=== PATIENT | female | born 1950 | race African-American/Black ===

== ENCOUNTER 2020-08-14 12:57 | Inpatient (IN) | payer OTHER ==
[~2020-08-14] VITALS: Ht 175.3 cm; Wt 116.7 kg
[2020-08-14] MEDS ORDERED: Aspirin Baby 81mg ORAL ONE (13:00)
--- NOTE | 2020-08-14 13:09 | Emergency Room Report ---
History of Present Illness General Chief Complaint: Chest Pain Source: Patient, EMS Present Illness HPI 70-year-old female history of CAD, hypertension, CHF, pacemaker, presents with right-sided chest burning, patient states the pain started at 3 AM no aggravating relieving factors severity is moderate, constant she does endorse some accompanying shortness of breath, she took an aspirin and nitro without any relief no nausea no vomiting, no diaphoresis patient presents for evaluation and treatment Allergies: Coded Allergies: No Known Allergies (Unverified , 08/14/20) COVID-19 Screening Contact w/high risk pt: No Experienced COVID-19 symptoms?: No COVID-19 Testing performed STATE FIRE [employer]SHAL: No Patient History Past Medical History: see triage record Last Menstrual Period: na Reviewed Nursing Documentation: PMH: Agreed; PSxH: Agreed Nursing Documentation-PMH Past Medical History: No History, Except For Hx Cardiac Problems: Yes - CHF, lupus Hx Hypertension: Yes Hx Pacemaker: Yes Review of Systems All Other Systems: negative except mentioned in HPI Physical Exam Vital Signs Date Time Temp Pulse Resp B/P (MAP) Pulse Ox O2 Delivery O2 Flow Rate FiO2 08/14/20 12:53 97.7 84 16 160/95 (116) 94 Room Air Sp02 EP Interpretation: reviewed, normal General Appearance: well appearing, no apparent distress, alert Head: normocephalic, atraumatic Eyes: bilateral eye PERRL, bilateral eye EOMI ENT: uvula midline, moist mucus membranes Neck: supple, thyroid normal, supple/symm/no masses Respiratory: lungs clear, no respiratory distress, no retraction, no accessory muscle use Cardiovascular #1: normal peripheral pulses, regular rate, rhythm, no gallop, no murmur, edema - Bilateral 1+ pedal edema Gastrointestinal: non tender, soft, no guarding, no rebound Musculoskeletal: normal inspection Neurologic: alert, oriented x3 Psychiatric: mood/affect normal Skin: no rash, warm/dry, other - [employer] Jyothi Garcia RN, no evidence of vesicular rash Medical Decision Making Diagnostic Impression: Primary Impression: Chest pain Qualified Codes: R07.9 - Chest pain, unspecified ER Course 70-year-old female with multiple comorbidities presents with right-sided burning chest pain differential diagnosis includes ACS, pancreatitis, pneumonia Will obtain labs, EKG, chest x-ray patient will be given 162 mg of aspirin patient already received 81 mg of baby aspirin at home Plan for admission to Dr. Butcher Laboratory Tests Test 08/14/20 13:15 08/14/20 13:50 Sodium Level 142 MMOL/L (136-145) Potassium Level 4.5 MMOL/L (3.5-5.1) Chloride Level 106 MMOL/L (98-107) Carbon Dioxide Level 24 MMOL/L (21-32) Anion Gap 13 mmol/L (5-15) Blood Urea Nitrogen 29 mg/dL (7-18) H Creatinine 2.0 MG/DL (0.55-1.30) H Estimated Glomerular Filtration Rate 24.5 mL/min (>60) Glucose Level 128 MG/DL (74-106) H Calcium Level 9.8 MG/DL (8.5-10.1) Total Bilirubin 0.4 MG/DL (0.2-1.0) Aspartate Amino Transferase (AST) 29 U/L (15-37) Alanine Aminotransferase (ALT) 30 U/L (12-78) Alkaline Phosphatase 94 U/L (46-116) Troponin I 0.000 ng/mL (0.000-0.056) Pro-B-Type Natriuretic Peptide 402 pg/mL (0-125) H Total Protein 7.6 G/DL (6.4-8.2) Albumin 4.1 G/DL (3.4-5.0) Globulin 3.5 g/dL Albumin/Globulin Ratio 1.2 (1.0-2.7) White Blood Count 5.3 K/UL (4.8-10.8) Red Blood Count 3.53 M/UL (4.20-5.40) L Hemoglobin 10.4 G/DL (12.0-16.0) L Hematocrit 32.2 % (37.0-47.0) L Mean Corpuscular Volume 91 FL (80-99) Mean Corpuscular Hemoglobin 29.6 PG (27.0-31.0) Mean Corpuscular Hemoglobin Concent 32.4 G/DL (32.0-36.0) Red Cell Distribution Width 15.1 % (11.6-14.8) H Platelet Count 297 K/UL (150-450) Mean Platelet Volume 5.3 FL (6.5-10.1) L Neutrophils (%) (Auto) 55.8 % (45.0-75.0) Lymphocytes (%) (Auto) 30.0 % (20.0-45.0) Monocytes (%) (Auto) 9.1 % (1.0-10.0) Eosinophils (%) (Auto) 1.8 % (0.0-3.0) Basophils (%) (Auto) 3.3 % (0.0-2.0) H Prothrombin Time 11.4 SEC (9.30-11.50) Prothrombin Time INR 1.0 (0.9-1.1) Activated Partial Thromboplast Time 20 SEC (23-33) L EKG Diagnostic Results EKG Time: 12:56 EP Interpretation: V paced, rate 76, QTc 569, left bundle branch block no acute ST elevation Rhythm Strip Diag. Results Rhythm Strip Time: 13:09 EP Interpretation: yes Rate: 75 Rhythm: other - V paced Chest X-Ray Diagnostic Results Chest X-Ray Diagnostic Results : Chest X-Ray Ordered: Yes # of Views/Limited/Complete: 1 View Indication: Chest Pain EP Interpretation: Yes Interpretation: no consolidation, no effusion, no pneumothorax, no acute cardiopulmonary disease Impression: No acute disease Electronically Signed by: Shine Cedillo MD Last Vital Signs Date Time Temp Pulse Resp B/P (MAP) Pulse Ox O2 Delivery O2 Flow Rate FiO2 08/14/20 12:53 97.7 84 16 160/95 (116) 94 Room Air Disposition: ADMITTED INPATIENT Condition: Stable Shine Cedillo MD Aug 14, 2020 13:09
[2020-08-14 13:35] VITALS: BP 155/92
[2020-08-14 13:37] LABS: CALCIUM 9.8 MG/DL (8.5-10.1); POTASSIUM 4.5 MMOL/L (3.5-5.1)
[2020-08-14 13:49] LABS: ALBUMIN 4.1 G/DL (3.4-5.0); ALBUMIN/GLOBULIN RATIO 1.2 (1.0-2.7); BILIRUBIN,TOTAL 0.4 MG/DL (0.2-1.0)
[2020-08-14 13:57] LABS: BASOPHILS % (AUTO) 3.3 % (0.0-2.0); EOSINOPHILS % (AUTO) 1.8 % (0.0-3.0); HEMATOCRIT 32.2 % (37.0-47.0); HEMOGLOBIN 10.4 G/DL (12.0-16.0); MEAN CORPUSCULAR VOLUME 91 FL (80-99); MONOCYTES % (AUTO) 9.1 % (1.0-10.0); NEUTROPHILS % (AUTO) 55.8 % (45.0-75.0); PLATELET COUNT 297 K/UL (150-450); RED BLOOD COUNT 3.53 M/UL (4.20-5.40); RED CELL DISTRIBUTION WIDTH 15.1 % (11.6-14.8); WHITE BLOOD COUNT 5.3 K/UL (4.8-10.8)
[2020-08-14] MEDS ORDERED: FERROUS SULFAT325 MG ORAL (14:11)
[2020-08-14] MEDS ORDERED: plaquinel (14:11)
[2020-08-14] MEDS ORDERED: ENTRESTO 97 MG1 EACH PO (14:11)
[2020-08-14] MEDS ORDERED: RANEXA500 MG ORAL ×2 (14:49→15:03)
[2020-08-14] MEDS ORDERED: HYDROXYCHLOROQ200 M1 PO (14:49)
[2020-08-14] MEDS ORDERED: AMLODIPINE BESYL5 MG ORAL (15:03)
[2020-08-14] MEDS ORDERED: ATORVASTATIN CA20 MG ORAL (15:03)
[2020-08-14] MEDS ORDERED: BRILINTA90 MG PO (15:03)
[2020-08-14] MEDS ORDERED: COREG25 MG ORAL (15:03)
[2020-08-14] MEDS ORDERED: LEVOTHYROXINE100 MC1 IV (15:03)
[2020-08-14] MEDS ORDERED: FUROSEMIDE40 MG ORAL (15:03)
[2020-08-14 16:35] VITALS: BP 150/94
[2020-08-14] MEDS ORDERED: Miralax 17gm pkt ORAL PRN (17:30)
--- NOTE | 2020-08-14 17:41 | Diagnostic Imaging Report ---
Indication: Chest pain Technique: One view of the chest Comparison: none Findings: Lungs and pleural spaces are clear. There is a left chest AICD again demonstrated. The heart size is normal. There are surgical clips in the lower neck Impression: No acute process. Findings as noted
[2020-08-14] MEDS ORDERED: dilTIAZem HCl 25mg/5ml Inj IV PRN (18:00)
[2020-08-14] MEDS ORDERED: Albuterol/Ipratropium 3ml neb HHN PRN (18:00)
[2020-08-14] MEDS ORDERED: Enalaprilat 2.5mg/2ml Inj IV PRN (18:00)
[2020-08-14] MEDS ORDERED: Nitroglycerin Subl 0.4mg tab SL PRN (18:00)
[2020-08-14 18:05] VITALS: BP 123/50
[2020-08-14 20:00] VITALS: BP 140/53
[2020-08-14] MEDS ORDERED: Ranolazine 500mg tab ORAL SCH (21:00)
[2020-08-14] MEDS: Atorvastatin 20mg tab ORAL SCH (21:16)
[2020-08-14] MEDS: Carvedilol 25mg Tab ORAL SCH (21:16)
[2020-08-14] MEDS: Heparin 5000 units/ml inj SUBQ SCH (21:17)
[2020-08-15] VITALS: BP 114/49
[2020-08-15 04:00] VITALS: BP 129/53
[2020-08-15 07:24] LABS: BASOPHILS % (AUTO) 1.2 % (0.0-2.0); EOSINOPHILS % (AUTO) 2.9 % (0.0-3.0); HEMATOCRIT 29.5 % (37.0-47.0); HEMOGLOBIN 9.7 G/DL (12.0-16.0); LYMPHOCYTES % (AUTO) 40.7 % (20.0-45.0); MEAN CORPUSCULAR VOLUME 91 FL (80-99); MONOCYTES % (AUTO) 10.1 % (1.0-10.0); NEUTROPHILS % (AUTO) 45.1 % (45.0-75.0); PLATELET COUNT 284 K/UL (150-450); RED BLOOD COUNT 3.25 M/UL (4.20-5.40); RED CELL DISTRIBUTION WIDTH 14.9 % (11.6-14.8); WHITE BLOOD COUNT 5.3 K/UL (4.8-10.8)
[2020-08-15 07:44] LABS: CHOLESTEROL 140 MG/DL (< 200); HDL CHOLESTEROL 66 MG/DL (40-60); TRIGLYCERIDES 70 MG/DL (30-150)
[2020-08-15 08:00] VITALS: BP 118/49
[2020-08-15] MEDS: Carvedilol 25mg Tab ORAL SCH ×2 (09:07→20:30)
[2020-08-15] MEDS: Aspirin Baby 81mg ORAL SCH (09:07)
[2020-08-15] MEDS: Heparin 5000 units/ml inj SUBQ SCH ×2 (09:09→20:35)
--- NOTE | 2020-08-15 10:48 | Cardiac Electrophysiology PN ---
Subjective Subjective [id number] Objective Last 24 Hour Vital Signs Date Time Temp Pulse Resp B/P (MAP) Pulse Ox O2 Delivery O2 Flow Rate FiO2 08/15/20 09:07 70 118/49 08/15/20 09:07 70 118/49 08/15/20 08:00 96.1 70 18 118/49 (72) 97 08/15/20 04:00 68 08/15/20 04:00 97.9 67 20 129/53 (78) 97 08/15/20 00:00 98.6 70 18 114/49 (70) 95 08/15/20 00:00 71 08/14/20 21:16 77 140/53 08/14/20 21:00 Room Air 08/14/20 20:00 98.1 77 18 140/53 (82) 97 08/14/20 20:00 81 08/14/20 18:05 98.2 75 20 123/50 (74) 98 08/14/20 17:40 Room Air 08/14/20 17:23 97.7 79 16 152/99 100 Room Air 08/14/20 16:35 97.7 86 16 150/94 98 Room Air 08/14/20 13:35 82 17 Room Air 99 08/14/20 13:35 97.7 82 17 155/92 99 Room Air 08/14/20 12:53 97.7 84 16 160/95 (116) 94 Room Air Intake and Output 08/14/20 08/15/20 19:00 07:00 Intake Total 120 ml 300 ml Balance 120 ml 300 ml Other 120 ml 300 ml # Voids 1 3 Laboratory Tests Test 08/14/20 13:15 08/14/20 13:50 08/15/20 06:28 Sodium Level 142 MMOL/L (136-145) Potassium Level 4.5 MMOL/L (3.5-5.1) Chloride Level 106 MMOL/L (98-107) Carbon Dioxide Level 24 MMOL/L (21-32) Anion Gap 13 mmol/L (5-15) Blood Urea Nitrogen 29 mg/dL (7-18) H Creatinine 2.0 MG/DL (0.55-1.30) H Estimat Glomerular Filtration Rate 24.5 mL/min (>60) Glucose Level 128 MG/DL (74-106) H Calcium Level 9.8 MG/DL (8.5-10.1) Total Bilirubin 0.4 MG/DL (0.2-1.0) Aspartate Amino Transf (AST/SGOT) 29 U/L (15-37) Alanine Aminotransferase (ALT/SGPT) 30 U/L (12-78) Alkaline Phosphatase 94 U/L (46-116) Troponin I 0.000 ng/mL (0.000-0.056) Pro-B-Type Natriuretic Peptide 402 pg/mL (0-125) H Total Protein 7.6 G/DL (6.4-8.2) Albumin 4.1 G/DL (3.4-5.0) Globulin 3.5 g/dL Albumin/Globulin Ratio 1.2 (1.0-2.7) White Blood Count 5.3 K/UL (4.8-10.8) 5.3 K/UL (4.8-10.8) Red Blood Count 3.53 M/UL (4.20-5.40) L 3.25 M/UL (4.20-5.40) L Hemoglobin 10.4 G/DL (12.0-16.0) L 9.7 G/DL (12.0-16.0) L Hematocrit 32.2 % (37.0-47.0) L 29.5 % (37.0-47.0) L Mean Corpuscular Volume 91 FL (80-99) 91 FL (80-99) Mean Corpuscular Hemoglobin 29.6 PG (27.0-31.0) 29.8 PG (27.0-31.0) Mean Corpuscular Hemoglobin Concent 32.4 G/DL (32.0-36.0) 32.9 G/DL (32.0-36.0) Red Cell Distribution Width 15.1 % (11.6-14.8) H 14.9 % (11.6-14.8) H Platelet Count 297 K/UL (150-450) 284 K/UL (150-450) Mean Platelet Volume 5.3 FL (6.5-10.1) L 5.0 FL (6.5-10.1) L Neutrophils (%) (Auto) 55.8 % (45.0-75.0) 45.1 % (45.0-75.0) Lymphocytes (%) (Auto) 30.0 % (20.0-45.0) 40.7 % (20.0-45.0) Monocytes (%) (Auto) 9.1 % (1.0-10.0) 10.1 % (1.0-10.0) H Eosinophils (%) (Auto) 1.8 % (0.0-3.0) 2.9 % (0.0-3.0) Basophils (%) (Auto) 3.3 % (0.0-2.0) H 1.2 % (0.0-2.0) Prothrombin Time 11.4 SEC (9.30-11.50) 11.4 SEC (9.30-11.50) Prothromb Time International Ratio 1.0 (0.9-1.1) 1.0 (0.9-1.1) Activated Partial Thromboplast Time 20 SEC (23-33) L 24 SEC (23-33) C-Reactive Protein, Quantitative < 0.4 mg/dL (0.00-0.90) Triglycerides Level 70 MG/DL (30-150) Cholesterol Level 140 MG/DL (< 200) LDL Cholesterol 56 mg/dL (<100) HDL Cholesterol 66 MG/DL (40-60) H Cholesterol/HDL Ratio 2.1 (3.3-4.4) L Thyroid Stimulating Hormone (TSH) 1.217 uiU/mL (0.358-3.740) Alexandr Riojas MD Aug 15, 2020 10:48
[2020-08-15 12:00] VITALS: BP 124/64
--- NOTE | 2020-08-15 13:27 | Consultation ---
History of Present Illness General Date patient seen: Aug 15, 2020 Chief Complaint: Chest Pain Present Illness HPI 70-year-old female history of CAD, hypertension, CHF, pacemaker, lupus presented to ER with right-sided chest burning, severity is moderate, constant. She also had some accompanying shortness of breath, she took an aspirin and nitro without any relief no nausea no vomiting. Her CXr was clear in ER. Allergies: Coded Allergies: No Known Allergies (Unverified , 08/14/20) Medication History Scheduled Amlodipine Besylate* (Amlodipine Besylate*), 5 MG ORAL DAILY, (Reported) Atorvastatin Calcium* (Atorvastatin Calcium*), 20 MG ORAL BEDTIME, (Reported) Carvedilol (Coreg), 25 MG ORAL EVERY 12 HOURS, (Reported) Ferrous Sulfate* (Ferrous Sulfate*), 325 MG ORAL TID, (Reported) Furosemide* (Lasix*), 40 MG ORAL DAILY, (Reported) Hydroxychloroquine Sulfate (Hydroxychloroquine Sulfate), 200 MG PO DAILY, (Reported) Levothyroxine Sodium* (Levothyroxine Sodium*), 175 MCG IV DAILY, (Reported) Ranolazine* (Ranexa*), 1,000 MG ORAL EVERY 12 HOURS, (Reported) Ranolazine* (Ranexa*), 1,000 MG ORAL EVERY 12 HOURS, (Reported) Sacubitril/Valsartan (Entresto 97 mg-103 mg Tablet), 1 EACH PO BID, (Reported) Ticagrelor* (Brilinta*), 90 MG PO BID, (Reported) [plaquinel], 200 MG BID, (Reported) Patient History Healthcare decision maker N Resuscitation status Advanced Directive on File Past Medical/Surgical History Past Medical/Surgical History: (1) Hypertension (2) CHF (congestive heart failure) Review of Systems Constitutional: Reports: no symptoms Hematologic/Lymphatic: Reports: no symptoms Physical Exam General Appearance: WD/WN, no apparent distress Lines, tubes and drains: peripheral, central line HEENT: normocephalic, atraumatic Neck: non-tender, normal alignment Respiratory/Chest: chest wall non-tender, lungs clear Breasts: no masses Cardiovascular/Chest: normal peripheral pulses Abdomen: normal bowel sounds, non tender Genitourinary/Rectal: normal genital exam Extremities: normal range of motion Skin Exam: normal pigmentation Last 24 Hour Vital Signs Date Time Temp Pulse Resp B/P (MAP) Pulse Ox O2 Delivery O2 Flow Rate FiO2 08/15/20 12:00 68 08/15/20 12:00 96.6 69 20 124/64 (84) 98 08/15/20 09:07 70 118/49 08/15/20 09:07 70 118/49 08/15/20 09:00 Room Air 08/15/20 08:00 72 08/15/20 08:00 96.1 70 18 118/49 (72) 97 08/15/20 04:00 68 08/15/20 04:00 97.9 67 20 129/53 (78) 97 08/15/20 00:00 98.6 70 18 114/49 (70) 95 08/15/20 00:00 71 08/14/20 21:16 77 140/53 08/14/20 21:00 Room Air 08/14/20 20:00 98.1 77 18 140/53 (82) 97 08/14/20 20:00 81 08/14/20 18:05 98.2 75 20 123/50 (74) 98 08/14/20 17:40 Room Air 08/14/20 17:23 97.7 79 16 152/99 100 Room Air 08/14/20 16:35 97.7 86 16 150/94 98 Room Air 08/14/20 13:35 82 17 Room Air 99 08/14/20 13:35 97.7 82 17 155/92 99 Room Air Intake and Output 08/14/20 08/15/20 18:59 06:59 Intake Total 120 ml 300 ml Balance 120 ml 300 ml Other 120 ml 300 ml # Voids 1 3 Laboratory Tests Test 08/14/20 13:50 08/15/20 06:28 08/15/20 11:00 White Blood Count 5.3 K/UL (4.8-10.8) 5.3 K/UL (4.8-10.8) Red Blood Count 3.53 M/UL (4.20-5.40) L 3.25 M/UL (4.20-5.40) L Hemoglobin 10.4 G/DL (12.0-16.0) L 9.7 G/DL (12.0-16.0) L Hematocrit 32.2 % (37.0-47.0) L 29.5 % (37.0-47.0) L Mean Corpuscular Volume 91 FL (80-99) 91 FL (80-99) Mean Corpuscular Hemoglobin 29.6 PG (27.0-31.0) 29.8 PG (27.0-31.0) Mean Corpuscular Hemoglobin Concent 32.4 G/DL (32.0-36.0) 32.9 G/DL (32.0-36.0) Red Cell Distribution Width 15.1 % (11.6-14.8) H 14.9 % (11.6-14.8) H Platelet Count 297 K/UL (150-450) 284 K/UL (150-450) Mean Platelet Volume 5.3 FL (6.5-10.1) L 5.0 FL (6.5-10.1) L Neutrophils (%) (Auto) 55.8 % (45.0-75.0) 45.1 % (45.0-75.0) Lymphocytes (%) (Auto) 30.0 % (20.0-45.0) 40.7 % (20.0-45.0) Monocytes (%) (Auto) 9.1 % (1.0-10.0) 10.1 % (1.0-10.0) H Eosinophils (%) (Auto) 1.8 % (0.0-3.0) 2.9 % (0.0-3.0) Basophils (%) (Auto) 3.3 % (0.0-2.0) H 1.2 % (0.0-2.0) Prothrombin Time 11.4 SEC (9.30-11.50) 11.4 SEC (9.30-11.50) Prothromb Time International Ratio 1.0 (0.9-1.1) 1.0 (0.9-1.1) Activated Partial Thromboplast Time 20 SEC (23-33) L 24 SEC (23-33) C-Reactive Protein, Quantitative < 0.4 mg/dL (0.00-0.90) Triglycerides Level 70 MG/DL (30-150) Cholesterol Level 140 MG/DL (< 200) LDL Cholesterol 56 mg/dL (<100) HDL Cholesterol 66 MG/DL (40-60) H Cholesterol/HDL Ratio 2.1 (3.3-4.4) L Thyroid Stimulating Hormone (TSH) 1.217 uiU/mL (0.358-3.740) Troponin I 0.001 ng/mL (0.000-0.056) Height (Feet): 5 Height (Inches): 9.00 Weight (Pounds): 228 Medications Current Medications Medications (Trade) Dose Ordered Sig/Bry Route PRN Reason Start Time Stop Time Status Last Admin Dose Admin Acetaminophen (Tylenol) 650 mg Q4H PRN ORAL T>100.5 08/14/20 17:30 09/13/20 17:29 Albuterol/ Ipratropium (Albuterol/ Ipratropium) 3 ml Q4H PRN HHN Shortness of Breath 08/14/20 18:00 08/19/20 17:59 Aspirin (ASA) 162 mg DAILY ORAL 08/15/20 09:00 09/29/20 08:59 08/15/20 09:07 Atorvastatin Calcium (Lipitor) 20 mg BEDTIME ORAL 08/14/20 21:00 11/12/20 20:59 08/14/20 21:16 Carvedilol (Coreg) 25 mg EVERY 12 HOURS ORAL 08/14/20 21:00 09/13/20 20:59 08/15/20 09:07 Clonidine HCl (Catapres Tab) 0.1 mg Q4H PRN ORAL sbp>170 08/15/20 11:00 11/13/20 10:59 Diltiazem HCl (Cardizem) 10 mg Q1H PRN IV heart rate more than 120, 08/14/20 18:00 09/13/20 17:59 Furosemide (Lasix) 40 mg EVERY 12 HOURS IV 08/15/20 21:00 09/14/20 20:59 Heparin Sodium (Porcine) (Heparin 5000 units/ml) 5,000 units EVERY 12 HOURS SUBQ 08/14/20 21:00 09/28/20 20:59 08/15/20 09:09 Hydralazine HCl (Apresoline) 10 mg BID ORAL 08/15/20 18:00 11/13/20 17:59 Isosorbide Dinitrate (Isordil) 10 mg BID ORAL 08/15/20 18:00 09/14/20 17:59 Levothyroxine Sodium (Synthroid) 175 mcg DAILY IV 08/15/20 09:00 09/14/20 08:59 08/15/20 09:08 Nitroglycerin (Ntg) 0.4 mg Q5MIN X3 PRN SL Prn Chest Pain 08/14/20 18:00 09/13/20 17:59 Ondansetron HCl (Zofran) 4 mg Q6H PRN IVP Nausea & Vomiting 08/14/20 17:30 09/13/20 17:29 Pantoprazole (Protonix) 40 mg ACBREAKFAST ORAL 08/15/20 06:30 09/14/20 06:29 08/15/20 06:17 Polyethylene Glycol (Miralax) 17 gm DAILYPRN PRN ORAL Constipation 08/14/20 17:30 09/13/20 17:29 Temazepam (Restoril) 15 mg HSPRN PRN ORAL Insomnia 08/14/20 21:00 08/21/20 20:59 Assessment/Plan Problem List: (1) ACS (acute coronary syndrome) ICD Codes: I24.9 - Acute ischemic heart disease, unspecified SNOMED: 114041235 (2) Hypertension ICD Codes: I10 - Essential (primary) hypertension SNOMED: 03459201 (3) CHF (congestive heart failure) ICD Codes: I50.9 - Heart failure, unspecified SNOMED: 43727566 (4) Pacemaker ICD Codes: Z95.0 - Presence of cardiac pacemaker SNOMED: 642681449 Assessment/Plan: serial ekg, troponin,cardio evaluation monitor BP echocardiogram VALARIE b/o hx of lupus.\ DVT propylaxis Aubrey Day MD Aug 15, 2020 13:27
--- NOTE | 2020-08-15 13:41 | Cardiology Report ---
APPROVED REPORT EXAM: Two-dimensional and M-mode echocardiogram with Doppler and color Doppler. INDICATION Left ventricular function M-Mode DIMENSIONS IVSd0.7 (0.7-1.1cm)Left Atrium (MM)3.5 (1.6-4.0cm) LVDd6.0 (3.5-5.6cm)Aortic Root3.2 (2.0-3.7cm) PWd1.4 (0.7-1.1cm)Aortic Cusp Exc.1.8 (1.5-2.0cm) IVSs1.0 cmEPSS1.0 (>1.0cm) LVDs4.4 (2.5-4.0cm) PWs2.2 cm <Conclusion> Technically difficult study due to poor acoustical windows. Normal left ventricular chamber size. There is akinesis apical cap Increased echoes in the apex. Can not exclude for thormbus. Left ventricular ejection fraction estimated to be 40-45 %. No evidence of left ventricular hypertrophy. Anterior Echo-free space, may be due to pericardial fat or effusion. Right atrial size is mildly enlarged. All other chamber sizes are within normal limits. Focal aortic valve sclerosis with adequate cusp excursion. Thickened mitral valve leaflets with normal excursion. Mitral annulus and aortic root calcification. Pulmonic valve not well visualized. Normal tricuspid valve structure. IVC at normal size with physiologic collapse. Pacemaker wire present in the right side chambers. A color flow and spectral Doppler study was performed and revealed: Trace aortic regurgitation. Mild mitral regurgitation. Mitral diastolic velocities suggest reduced left ventricular relaxation c/w mild LV diastolic dysfunction (Grade I ). Mild tricuspid regurgitation. Tricuspid systolic velocities suggests peak right ventricular systolic pressure of 40 mmHg, consistent with mild pulmonary hypertension. Trace to mild pulmonic regurgitation present.
--- NOTE | 2020-08-15 13:46 | Cardiology Report ---
APPROVED REPORT EKG Measurement Heart [id number] <Conclusion> Atrial-sensed ventricular-paced rhythm Abnormal ECG
--- NOTE | 2020-08-15 15:30 | Consultation ---
DATE OF CONSULTATION: 08/15/2020 CARDIOLOGY CONSULTATION CONSULTING PHYSICIAN: Alexandr Riojas MD. REFERRING PHYSICIAN: Lauro Butcher DO. REASON FOR CONSULTATION: Management of congestive heart failure and defibrillator. HISTORY OF PRESENT ILLNESS: The patient is a 70-year-old lady with history of hypertension and prior myocardial infarction in 1993, who underwent a PTCA at [facility]. The patient also has ischemic cardiomyopathy and underwent a defibrillator implantation in 2014 at [facility] by Dr. Kenton Jo. The patient presented to the emergency room with right-sided chest pain that started at 3 o'clock in the morning without any releasing factors. The patient was admitted and a Cardiology consultation was obtained for further evaluation and management. The patient is already on aspirin and Brilinta at home and she took an extra nitroglycerin without relief. The patient did not have any nausea, vomiting, or diaphoresis. At the time of my evaluation, the patient denies any chest pain or shortness of breath and states she wants to go home. REVIEW OF SYSTEMS: Negative other than what was mentioned in the history of present illness. PAST MEDICAL HISTORY: As mentioned above. FAMILY HISTORY: Noncontributory. SOCIAL HISTORY: She lives at home. Does not smoke or drink alcohol. PHYSICAL EXAMINATION: VITAL SIGNS: Blood pressure of 118/49, pulse is 70, respirations 18, and temperature 96. NECK: Showed no JVD. LUNGS: Clear. CARDIOVASCULAR: Showed regular S1 and S2 with no gallop or murmur. Defibrillator in the left subclavian. ABDOMEN: Soft. EXTREMITIES: A 1+ pitting edema. LABORATORY AND DIAGNOSTIC DATA: Her chest x-ray on admission showed a left-sided dual-chamber defibrillator. Her labs show white count of 5.3, hemoglobin 9.7 and hematocrit 29.5, and platelet count of 284. Sodium 142, potassium 4.1, BUN of 29, creatinine of 2.0, and glucose of 128. Troponin is negative. ASSESSMENT AND PLAN: 1. Chest pain. The patient has history of coronary artery disease, prior myocardial infarction and PTCA in 1993. First troponin is negative. Her EKG has atrially sensed and ventricular paced rhythm and cannot be interpreted from the ischemia perspective with ventricular paced. We will completely rule out [facility] protocol, get an echocardiogram for further evaluation. In the meantime, continue the patient on aspirin and Brilinta and Coreg 25 b.i.d. as well as Lipitor 20 mg at bedtime. 2. History of congestive heart failure. The patient is on Lasix 40 mg IV b.i.d., already on Coreg 25 b.i.d. The patient on in view of renal failure. 3. Hypertension, I will maximize her heart failure therapy with Lasix and Coreg, hydralazine and nitrate. We will discontinue amlodipine at this time. 4. Status post dual-chamber ICD. The patient does not know the brand. We will try to find the brand for interrogation for further management. 5. Hypothyroidism, on Synthroid. 6. Hyperlipidemia, on Lipitor. 7. Obesity. Thank you very much for allowing me to participate in the care of this patient. Please do not hesitate to contact me for any questions regarding my evaluation. Alexandr Riojas M.D. DR: MURIEL JOB#: [id number] CC:
--- NOTE | 2020-08-15 15:42 | Consultation ---
Consult Note Consult Note Asked to evaluate at the request of Dr. Butcher for renal failure 70-year-old female history of CAD, hypertension, CHF, pacemaker, presents with right-sided chest burning, patient states the pain started at 3 AM no aggravating relieving factors severity is moderate, constant she does endorse some accompanying shortness of breath, she took an aspirin and nitro without any relief no nausea no vomiting, no diaphoresis patient presents for evaluation and treatment Allergies: No Known Allergies (Unverified , 08/14/20) COVID-19 Screening Contact w/high risk pt: No Experienced COVID-19 symptoms?: No COVID-19 Testing performed TRANSPORTATION ATTENDANT: No Past Medical History: No History, Except For Hx Cardiac Problems: Yes - CHF, lupus Hx Hypertension: Yes Hx Pacemaker: Yes Patient examined Data reviewed Assessment/Plan Renal failure most likely multifactorial mainly secondary to congestive heart failure Hypertension Chest pain, history of coronary artery disease Prior [place] in 1993 underwent PTCA at [facility] Ischemic cardiomyopathy underwent defibrillator in 2014 at [facility] Hypothyroidism Obesity hyperlipemia Optimize cardiac status Patient already on aspirin, nitrates, beta-blockers, Lipitor Monitor renal parameters and electrolytes Per orders Jared Gordon MD Aug 15, 2020 15:41
[2020-08-15 16:00] VITALS: BP 119/48
[2020-08-15] MEDS: HydrALAZINE 10mg Tab ORAL SCH (17:38)
[2020-08-15] MEDS: Docusate 100mg cap ORAL SCH (17:38)
--- NOTE | 2020-08-15 19:45 | History and Physical Report ---
DATE OF ADMISSION: 08/14/2020 CONSULTANTS: 1. Alexandr Riojas M.D. 2. Aubrey Day M.D. CHIEF COMPLAINT: Chest pain, shortness of breath. BRIEF HISTORY: This is a 70-year-old female who lives at home, presented with one day of increased chest pain, pressure-like, intermittent. No loss of consciousness. No radiation. The patient came to [place], diagnosed with the above and also shortness of breath. Admitted to [facility]. Currently, calm in bed, slightly short of breath. No complaint. REVIEW OF SYSTEMS: Slight chest pain. Slight shortness of breath. No nausea, vomiting, diarrhea. PAST MEDICAL HISTORY: CHF, hypertension, lupus, CAD. PAST SURGICAL HISTORY: Pacemaker. ALLERGIES: Denies. SOCIAL HISTORY: No smoking. Occasional alcohol. No intravenous drug abuse. FAMILY HISTORY: Noncontributory. PHYSICAL EXAMINATION: GENERAL: Calm in bed, oriented x3, no acute distress. VITAL SIGNS: Temperature is 97, pulse 69, respiratory rate 20, blood pressure 124/64. CARDIOVASCULAR: . ABDOMEN: Bowel sound positive. Nontender. Nondistended. EXTREMITIES: No cyanosis, clubbing, or edema. NEUROLOGIC: The patient moves all extremities, slightly weak. LABORATORY AND DIAGNOSTIC DATA: Labs at this time show hemoglobin and hematocrit 9.7 and 29; otherwise, CBC is normal. BMP shows BUN and creatinine of 29 and 2.0, glucose 128, INR is 1.0. Medications include furosemide, isosorbide, hydralazine, clonidine, levothyroxine, amlodipine, pantoprazole, temazepam, carvedilol, diltiazem, enalapril. ASSESSMENT: Chest pain, , CHF, hypertension, lupus, renal insufficiency, anemia, shortness of breath. PLAN: O2 and pulmonary treatement as needed. Blood pressure and pain control. Dietary followup. Resume home medications. We will add nephrology evaluation. PT. Dietary evaluation. CBC, BMP in the morning. Lauro Butcher D.O. DR: BRIEN JOB#: [id number] CC:
[2020-08-15 20:00] VITALS: BP 114/52
[2020-08-15] MEDS ORDERED: LEVOTHYROXINE175 MCG ORAL (20:30)
[2020-08-15] MEDS: Atorvastatin 20mg tab ORAL SCH (20:33)
[2020-08-15] MEDS ORDERED: VENTOLIN HFA18 GM INH (20:41)
[2020-08-15] MEDS ORDERED: COMBIVENT RESPIM4 GM IH (20:41)
[2020-08-16] VITALS: BP 108/56
[2020-08-16 00:44] LABS: APPEARANCE,URINE CLEAR; BILIRUBIN, URINE NEGATIVE (NEGATIVE); COLOR,URINE PALE YELLOW; GLUCOSE, URINE (UA) NEGATIVE (NEGATIVE); KETONES,URINE NEGATIVE (NEGATIVE); LEUKOCYTE ESTERASE ,URINE NEGATIVE (NEGATIVE); NITRITE,URINE NEGATIVE (NEGATIVE); PH,URINE 6 (4.5-8.0); PROTEIN,URINE NEGATIVE (NEGATIVE); UROBILINOGEN,URINE NORMAL MG/DL (0.0-1.0)
[2020-08-16 03:54] LABS: BASOPHILS % (AUTO) 1.7 % (0.0-2.0); EOSINOPHILS % (AUTO) 3.1 % (0.0-3.0); HEMATOCRIT 31.2 % (37.0-47.0); HEMOGLOBIN 10.1 G/DL (12.0-16.0); LYMPHOCYTES % (AUTO) 37.8 % (20.0-45.0); MEAN CORPUSCULAR VOLUME 91 FL (80-99); MONOCYTES % (AUTO) 8.3 % (1.0-10.0); NEUTROPHILS % (AUTO) 49.1 % (45.0-75.0); PLATELET COUNT 301 K/UL (150-450); RED BLOOD COUNT 3.43 M/UL (4.20-5.40); RED CELL DISTRIBUTION WIDTH 15.1 % (11.6-14.8); WHITE BLOOD COUNT 4.9 K/UL (4.8-10.8)
[2020-08-16 04:00] VITALS: BP 111/65
[2020-08-16 04:11] LABS: GAMMA GLUTAMYL TRANSPEPTIDASE 20 U/L (5-85); PHOSPHORUS 4.8 MG/DL (2.5-4.9)
[2020-08-16 04:24] LABS: ALBUMIN 3.9 G/DL (3.4-5.0); ALBUMIN/GLOBULIN RATIO 1.1 (1.0-2.7); BILIRUBIN,TOTAL 0.4 MG/DL (0.2-1.0); CALCIUM 9.4 MG/DL (8.5-10.1); POTASSIUM 4.1 MMOL/L (3.5-5.1)
[2020-08-16 08:00] VITALS: BP 119/50
--- NOTE | 2020-08-16 08:31 | General Progress Note ---
Subjective Constitutional: Reports: weakness Allergies: Coded Allergies: No Known Allergies (Unverified , 08/14/20) All Systems: reviewed and negative except above Subjective calm in bed Objective Last 24 Hour Vital Signs Date Time Temp Pulse Resp B/P (MAP) Pulse Ox O2 Delivery O2 Flow Rate FiO2 08/16/20 04:00 97.8 67 18 111/65 (80) 100 08/16/20 04:00 73 08/16/20 00:27 66 08/16/20 00:00 98.0 55 20 108/56 (73) 100 08/15/20 22:29 Room Air 08/15/20 20:30 67 114/52 08/15/20 20:00 61 08/15/20 20:00 97.5 67 18 114/52 (72) 97 08/15/20 17:39 119/48 08/15/20 17:38 119/48 08/15/20 16:00 97.7 63 18 119/48 (71) 97 08/15/20 16:00 72 08/15/20 12:00 68 08/15/20 12:00 96.6 69 20 124/64 (84) 98 08/15/20 09:07 70 118/49 08/15/20 09:07 70 118/49 08/15/20 09:00 Room Air Intake and Output 08/15/20 08/16/20 19:00 07:00 Intake Total 360 ml 240 ml Balance 360 ml 240 ml Intake Oral 360 ml 240 ml # Voids 3 6 Laboratory Tests 08/15/20 11:00: Troponin I 0.001 08/15/20 18:25: Troponin I 0.000 08/16/20 00:00: Urine Color Pale yellow, Urine Appearance Clear, Urine pH 6, Urine Specific [place] 1.005, Urine Protein Negative, Urine Glucose (UA) Negative, Urine Ketones Negative, Urine Blood Negative, Urine Nitrite Negative, Urine Bilirubin Negative, Urine Urobilinogen Normal, Urine Leukocyte Esterase Negative, Urine RBC 0, Urine WBC 0, Urine Squamous Epithelial Cells None, Urine Bacteria None, Urine Eosinophils None seen, Urine Random Sodium 105 08/16/20 03:07: Troponin I 0.000, White Blood Count 4.9, Red Blood Count 3.43L, Hemoglobin 10.1L , Hematocrit 31.2L, Mean Corpuscular Volume 91, Mean Corpuscular Hemoglobin 29.5, Mean Corpuscular Hemoglobin Concent 32.4, Red Cell Distribution Width 15.1H, Platelet Count 301, Mean Platelet Volume 5.0L, Neutrophils (%) (Auto) 49.1, Lymphocytes (%) (Auto) 37.8, Monocytes (%) (Auto) 8.3, Eosinophils (%) (Auto) 3.1H, Basophils (%) (Auto) 1.7, Sodium Level 138, Potassium Level 4.1, Chloride Level 105, Carbon Dioxide Level 26, Anion Gap 7, Blood Urea Nitrogen 33H, Creatinine 2.0H, Estimat Glomerular Filtration Rate 29.7, Glucose Level 95, Hemoglobin A1c 5.7, Uric Acid 11.6H, Calcium Level 9.4, Phosphorus Level 4.8, Magnesium Level 2.1, Total Bilirubin 0.4, Gamma Glutamyl Transpeptidase 20, Aspartate Amino Transf (AST/SGOT) 20, Alanine Aminotransferase (ALT/SGPT) 25, Alkaline Phosphatase 88, C-Reactive Protein, Quantitative < 0.4, Pro-B-Type Natriuretic Peptide 335H, Total Protein 7.3, Albumin 3.9, Globulin 3.4, Album in/Globulin Ratio 1.1, Vitamin B12 Level 233, Folate 7.6L, Free Thyroxine 1.21, Free Triiodothyronine 1.7L Height (Feet): 5 Height (Inches): 9.00 Weight (Pounds): 228 General Appearance: lethargic EENT: normal ENT inspection Neck: normal alignment Cardiovascular: normal peripheral pulses, normal rate, regular rhythm Respiratory/Chest: chest wall non-tender, lungs clear, normal breath sounds Abdomen: normal bowel sounds, non tender, soft Extremities: normal inspection Edema: no edema noted Arm (L), no edema noted Arm (R), no edema noted Leg (L), no edema noted Leg (R), no edema noted Pedal (L), no edema noted Pedal (R), no edema noted Generalized Neurologic: motor weakness Skin: normal pigmentation, warm/dry Assessment/Plan Problem List: (1) HTN (hypertension) ICD Codes: I10 - Essential (primary) hypertension SNOMED: 52406136 (2) Lupus ICD Codes: M32.9 - Systemic lupus erythematosus, unspecified SNOMED: 853798324 (3) SOB (shortness of breath) ICD Codes: R06.02 - Shortness of breath SNOMED: 906220481 (4) Chest pain ICD Codes: R07.9 - Chest pain, unspecified SNOMED: 96086612 Qualifiers: Qualified Codes: R07.9 - Chest pain, unspecified (5) CHF (congestive heart failure) ICD Codes: I50.9 - Heart failure, unspecified SNOMED: 59211261 (6) Hypertension ICD Codes: I10 - Essential (primary) hypertension SNOMED: 86980866 (7) Pacemaker ICD Codes: Z95.0 - Presence of cardiac pacemaker SNOMED: 958653817 (8) ACS (acute coronary syndrome) ICD Codes: I24.9 - Acute ischemic heart disease, unspecified SNOMED: 357654891 Status: unchanged Assessment/Plan: o2 pulm tx cardio pulm f/u [facility] am Lauro Butcher DO Aug 16, 2020 08:31
[2020-08-16] MEDS: Carvedilol 25mg Tab ORAL SCH ×2 (08:51→20:41)
[2020-08-16] MEDS: Docusate 100mg cap ORAL SCH ×2 (08:51→17:47)
[2020-08-16] MEDS: Aspirin Baby 81mg ORAL SCH (08:51)
[2020-08-16] MEDS: HydrALAZINE 10mg Tab ORAL SCH ×2 (08:51→17:47)
[2020-08-16] MEDS: Heparin 5000 units/ml inj SUBQ SCH ×2 (08:53→20:42)
--- NOTE | 2020-08-16 09:18 | Pulmonology Progress Note ---
Subjective ROS Limited/Unobtainable: No Constitutional: Reports: no symptoms HEENT: Repors: no symptoms Allergies: Coded Allergies: No Known Allergies (Unverified , 08/14/20) All Systems: reviewed and negative except above Objective Last 24 Hour Vital Signs Date Time Temp Pulse Resp B/P (MAP) Pulse Ox O2 Delivery O2 Flow Rate FiO2 08/16/20 08:52 119/50 08/16/20 08:51 119/50 08/16/20 08:51 75 119/50 08/16/20 08:00 98.2 75 16 119/50 (73) 98 08/16/20 04:00 97.8 67 18 111/65 (80) 100 08/16/20 04:00 73 08/16/20 00:27 66 08/16/20 00:00 98.0 55 20 108/56 (73) 100 08/15/20 22:29 Room Air 08/15/20 20:30 67 114/52 08/15/20 20:00 61 08/15/20 20:00 97.5 67 18 114/52 (72) 97 08/15/20 17:39 119/48 08/15/20 17:38 119/48 08/15/20 16:00 97.7 63 18 119/48 (71) 97 08/15/20 16:00 72 08/15/20 12:00 68 08/15/20 12:00 96.6 69 20 124/64 (84) 98 Intake and Output 08/15/20 08/16/20 19:00 07:00 Intake Total 360 ml 240 ml Balance 360 ml 240 ml Intake Oral 360 ml 240 ml # Voids 3 6 General Appearance: WD/WN HEENT: normocephalic, anicteric Respiratory: chest wall non-tender, lungs clear Breasts: no masses Cardiovascular: normal peripheral pulses Abdomen: normal bowel sounds, soft, non tender Genitourinary: normal external genitalia Extremities: no clubbing Skin: no rash Neurologic: image assembler II-XII grossly normal Laboratory Tests 08/15/20 11:00: Troponin I 0.001 08/15/20 18:25: Troponin I 0.000 08/16/20 00:00: Urine Color Pale yellow, Urine Appearance Clear, Urine pH 6, Urine Specific [place] 1.005, Urine Protein Negative, Urine Glucose (UA) Negative, Urine Ketones Negative, Urine Blood Negative, Urine Nitrite Negative, Urine Bilirubin Negative, Urine Urobilinogen Normal, Urine Leukocyte Esterase Negative, Urine RBC 0, Urine WBC 0, Urine Squamous Epithelial Cells None, Urine Bacteria None, Urine Eosinophils None seen, Urine Random Sodium 105 08/16/20 03:07: Troponin I 0.000, White Blood Count 4.9, Red Blood Count 3.43L, Hemoglobin 10.1L , Hematocrit 31.2L, Mean Corpuscular Volume 91, Mean Corpuscular Hemoglobin 29.5, Mean Corpuscular Hemoglobin Concent 32.4, Red Cell Distribution Width 15.1H, Platelet Count 301, Mean Platelet Volume 5.0L, Neutrophils (%) (Auto) 49.1, Lymphocytes (%) (Auto) 37.8, Monocytes (%) (Auto) 8.3, Eosinophils (%) (Auto) 3.1H, Basophils (%) (Auto) 1.7, Sodium Level 138, Potassium Level 4.1, Chloride Level 105, Carbon Dioxide Level 26, Anion Gap 7, Blood Urea Nitrogen 33H, Creatinine 2.0H, Estimat Glomerular Filtration Rate 29.7, Glucose Level 95, Hemoglobin A1c 5.7, Uric Acid 11.6H, Calcium Level 9.4, Phosphorus Level 4.8, Magnesium Level 2.1, Total Bilirubin 0.4, Gamma Glutamyl Transpeptidase 20, Aspartate Amino Transf (AST/SGOT) 20, Alanine Aminotransferase (ALT/SGPT) 25, Alkaline Phosphatase 88, C-Reactive Protein, Quantitative < 0.4, Pro-B-Type Natriuretic Peptide 335H, Total Protein 7.3, Albumin 3.9, Globulin 3.4, Albumin/Globulin Ratio 1.1, Vitamin B12 Level 233, Folate 7.6L, Free Thyroxine 1.21, Free Triiodothyronine 1.7L Current Medications Medications (Trade) Dose Ordered Sig/Bry Route PRN Reason Start Time Stop Time Status Last Admin Dose Admin Acetaminophen (Tylenol) 650 mg Q4H PRN ORAL T>100.5 08/14/20 17:30 09/13/20 17:29 Albuterol/ Ipratropium (Albuterol/ Ipratropium) 3 ml Q4H PRN HHN Shortness of Breath 08/14/20 18:00 08/19/20 17:59 Allopurinol (allopurinoL) 300 mg DAILY ORAL 08/16/20 09:00 09/15/20 08:59 08/16/20 08:52 Aspirin (ASA) 162 mg DAILY ORAL 08/15/20 09:00 09/29/20 08:59 08/16/20 08:51 Atorvastatin Calcium (Lipitor) 20 mg BEDTIME ORAL 08/14/20 21:00 11/12/20 20:59 08/15/20 20:33 Carvedilol (Coreg) 25 mg EVERY 12 HOURS ORAL 08/14/20 21:00 09/13/20 20:59 08/16/20 08:51 Clonidine HCl (Catapres Tab) 0.1 mg Q4H PRN ORAL sbp>170 08/15/20 11:00 11/13/20 10:59 Diltiazem HCl (Cardizem) 10 mg Q1H PRN IV heart rate more than 120, 08/14/20 18:00 09/13/20 17:59 Docusate Sodium (Colace) 100 mg TWICE A DAY ORAL 08/15/20 18:00 09/14/20 17:59 08/16/20 08:51 Furosemide (Lasix) 40 mg EVERY 12 HOURS IV 08/15/20 21:00 09/14/20 20:59 08/16/20 08:52 Heparin Sodium (Porcine) (Heparin 5000 units/ml) 5,000 units EVERY 12 HOURS SUBQ 08/14/20 21:00 09/28/20 20:59 08/16/20 08:53 Hydralazine HCl (Apresoline) 10 mg BID ORAL 08/15/20 18:00 11/13/20 17:59 08/16/20 08:51 Isosorbide Dinitrate (Isordil) 10 mg BID ORAL 08/15/20 18:00 09/14/20 17:59 08/16/20 08:52 Levothyroxine Sodium (Synthroid) 175 mcg DAILY IV 08/15/20 09:00 09/14/20 08:59 08/16/20 08:53 Nitroglycerin (Ntg) 0.4 mg Q5MIN X3 PRN SL Prn Chest Pain 08/14/20 18:00 09/13/20 17:59 Ondansetron HCl (Zofran) 4 mg Q6H PRN IVP Nausea & Vomiting 08/14/20 17:30 09/13/20 17:29 Pantoprazole (Protonix) 40 mg Q12HR ORAL 08/15/20 21:00 09/14/20 06:29 08/16/20 08:51 Polyethylene Glycol (Miralax) 17 gm DAILYPRN PRN ORAL Constipation 08/14/20 17:30 09/13/20 17:29 Temazepam (Restoril) 15 mg HSPRN PRN ORAL Insomnia 08/14/20 21:00 08/21/20 20:59 Assessment/Plan Problems: (1) ACS (acute coronary syndrome) (2) Hypertension (3) CHF (congestive heart failure) (4) Pacemaker Assessment/Plan no more chest pain all reviewed pacemaker needs to be interrogated monitor BP f/u cardio recommendations. dvt prophylaxis Aubrey Day MD Aug 16, 2020 09:18
--- NOTE | 2020-08-16 09:55 | Nephrology Progress Note ---
Assessment/Plan Problem List: (1) Renal failure (ARF), acute on chronic (2) CHF (congestive heart failure) (3) Pacemaker (4) HTN (hypertension) (5) Obesity (BMI 30-39.9) Assessment Renal failure most likely multifactorial mainly secondary to congestive heart failure Hypertension Chest pain, history of coronary artery disease Prior [place] in 1993 underwent PTCA at [facility] Ischemic cardiomyopathy underwent defibrillator [facility] [address] [facility] Obesity hyperlipemia Plan Add folic acid, and allopurinol Optimize cardiac status Patient already on aspirin, nitrates, beta-blockers, Lipitor Monitor renal parameters and electrolytes Per orders Subjective ROS Limited/Unobtainable: No Constitutional: Reports: malaise Objective Objective Last 24 Hour Vital Signs Date Time Temp Pulse Resp B/P (MAP) Pulse Ox O2 Delivery O2 Flow Rate FiO2 08/16/20 08:52 119/50 08/16/20 08:51 119/50 08/16/20 08:51 75 119/50 08/16/20 08:00 98.2 75 16 119/50 (73) 98 08/16/20 04:00 97.8 67 18 111/65 (80) 100 08/16/20 04:00 73 08/16/20 00:27 66 08/16/20 00:00 98.0 55 20 108/56 (73) 100 08/15/20 22:29 Room Air 08/15/20 20:30 67 114/52 08/15/20 20:00 61 08/15/20 20:00 97.5 67 18 114/52 (72) 97 08/15/20 17:39 119/48 08/15/20 17:38 119/48 08/15/20 16:00 97.7 63 18 119/48 (71) 97 08/15/20 16:00 72 08/15/20 12:00 68 08/15/20 12:00 96.6 69 20 124/64 (84) 98 Intake and Output 08/15/20 08/16/20 18:59 06:59 Intake Total 360 ml 240 ml Balance 360 ml 240 ml Intake Oral 360 ml 240 ml # Voids 3 6 Current Medications Medications (Trade) Dose Ordered Sig/Bry Route PRN Reason Start Time Stop Time Status Last Admin Dose Admin Acetaminophen (Tylenol) 650 mg Q4H PRN ORAL T>100.5 08/14/20 17:30 09/13/20 17:29 Albuterol/ Ipratropium (Albuterol/ Ipratropium) 3 ml Q4H PRN HHN Shortness of Breath 08/14/20 18:00 08/19/20 17:59 Allopurinol (allopurinoL) 300 mg DAILY ORAL 08/16/20 09:00 09/15/20 08:59 08/16/20 08:52 Aspirin (ASA) 162 mg DAILY ORAL 08/15/20 09:00 09/29/20 08:59 08/16/20 08:51 Atorvastatin Calcium (Lipitor) 20 mg BEDTIME ORAL 08/14/20 21:00 11/12/20 20:59 08/15/20 20:33 Carvedilol (Coreg) 25 mg EVERY 12 HOURS ORAL 08/14/20 21:00 09/13/20 20:59 08/16/20 08:51 Clonidine HCl (Catapres Tab) 0.1 mg Q4H PRN ORAL sbp>170 08/15/20 11:00 11/13/20 10:59 Diltiazem HCl (Cardizem) 10 mg Q1H PRN IV heart rate more than 120, 08/14/20 18:00 09/13/20 17:59 Docusate Sodium (Colace) 100 mg TWICE A DAY ORAL 08/15/20 18:00 09/14/20 17:59 08/16/20 08:51 Folic Acid (Folate) 1 mg DAILY ORAL 08/17/20 09:00 09/16/20 08:59 Furosemide (Lasix) 40 mg EVERY 12 HOURS IV 08/15/20 21:00 09/14/20 20:59 08/16/20 08:52 Heparin Sodium (Porcine) (Heparin 5000 units/ml) 5,000 units EVERY 12 HOURS SUBQ 08/14/20 21:00 09/28/20 20:59 08/16/20 08:53 Hydralazine HCl (Apresoline) 10 mg BID ORAL 08/15/20 18:00 11/13/20 17:59 08/16/20 08:51 Isosorbide Dinitrate (Isordil) 10 mg BID ORAL 08/15/20 18:00 09/14/20 17:59 08/16/20 08:52 Levothyroxine Sodium (Synthroid) 175 mcg DAILY IV 08/15/20 09:00 09/14/20 08:59 08/16/20 08:53 Nitroglycerin (Ntg) 0.4 mg Q5MIN X3 PRN SL Prn Chest Pain 08/14/20 18:00 09/13/20 17:59 Ondansetron HCl (Zofran) 4 mg Q6H PRN IVP Nausea & Vomiting 08/14/20 17:30 09/13/20 17:29 Pantoprazole (Protonix) 40 mg Q12HR ORAL 08/15/20 21:00 09/14/20 06:29 08/16/20 08:51 Polyethylene Glycol (Miralax) 17 gm DAILYPRN PRN ORAL Constipation 08/14/20 17:30 09/13/20 17:29 Temazepam (Restoril) 15 mg HSPRN PRN ORAL Insomnia 08/14/20 21:00 08/21/20 20:59 Laboratory Tests 08/15/20 11:00: Troponin I 0.001 08/15/20 18:25: Troponin I 0.000 08/16/20 00:00: Urine Color Pale yellow, Urine Appearance Clear, Urine pH 6, Urine Specific [place] 1.005, Urine Protein Negative, Urine Glucose (UA) Negative, Urine Ketones Negative, Urine Blood Negative, Urine Nitrite Negative, Urine Bilirubin Negative, Urine Urobilinogen Normal, Urine Leukocyte Esterase Negative, Urine RBC 0, Urine WBC 0, Urine Squamous Epithelial Cells None, Urine Bacteria None, Urine Eosinophils None seen, Urine Random Sodium 105 08/16/20 03:07: Troponin I 0.000, White Blood Count 4.9, Red Blood Count 3.43L, Hemoglobin 10.1L , Hematocrit 31.2L, Mean Corpuscular Volume 91, Mean Corpuscular Hemoglobin 29.5, Mean Corpuscular Hemoglobin Concent 32.4, Red Cell Distribution Width 15.1H, Platelet Count 301, Mean Platelet Volume 5.0L, Neutrophils (%) (Auto) 49.1, Lymphocytes (%) (Auto) 37.8, Monocytes (%) (Auto) 8.3, Eosinophils (%) (Auto) 3.1H, Basophils (%) (Auto) 1.7, Sodium Level 138, Potassium Level 4.1, Chloride Level 105, Carbon Dioxide Level 26, Anion Gap 7, Blood Urea Nitrogen 33H, Creatinine 2.0H, Estimat Glomerular Filtration Rate 29.7, Glucose Level 95, Hemoglobin A1c 5.7, Uric Acid 11.6H, Calcium Level 9.4, Phosphorus Level 4.8, Magnesium Level 2.1, Total Bilirubin 0.4, Gamma Glutamyl Transpeptidase 20, Aspartate Amino Transf (AST/SGOT) 20, Alanine Aminotransferase (ALT/SGPT) 25, Alkaline Phosphatase 88, C-Reactive Protein, Quantitative < 0.4, Pro-B-Type Natriuretic Peptide 335H, Total Protein 7.3, Albumin 3.9, Globulin 3.4, Albumi n/Globulin Ratio 1.1, Vitamin B12 Level 233, Folate 7.6L, Free Thyroxine 1.21, Free Triiodothyronine 1.7L Height (Feet): 5 Height (Inches): 9.00 Weight (Pounds): 228 General Appearance: no apparent distress Cardiovascular: normal rate Respiratory/Chest: decreased breath sounds Abdomen: distended, other - Obese Jared Gordon MD Aug 16, 2020 09:55
[2020-08-16 12:00] VITALS: BP 116/43
--- NOTE | 2020-08-16 15:35 | Cardiac Electrophysiology PN ---
Assessment/Plan Assessment/Plan 1. Chest pain. The patient has history of coronary artery disease, prior myocardial infarction and PTCA in 1993. Ruled out for [place]. Her EKG is atrially sensed and ventricular paced rhythm and cannot be interpreted from the ischemia perspective with ventricular paced. In the meantime, continue the patient on aspirin and Brilinta and Coreg 25 b.i.d. as well as Lipitor 20 mg at bedtime. Schedule for stress test in am. 2. History of CHF. Echo EF 40%. On Lasix 40 mg IV b.i.d., Coreg 25 b.i.d., Hydralazine 10 bid and Isordil 10 bid 3. Hypertension, I will maximize her heart failure therapy with Lasix and Coreg, hydralazine and nitrate. 4. Status post dual-chamber Med[employer]onic ICD. Recent interrogation was at office with Emmanuel Winn 5. Hypothyroidism, on Synthroid. 6. Hyperlipidemia, on Lipitor. 7. Obesity. 8. CKD Cr 2.0 DW RN Subjective Subjective [id number] A sense V paced. No CP or SOB. Objective Last 24 Hour Vital Signs Date Time Temp Pulse Resp B/P (MAP) Pulse Ox O2 Delivery O2 Flow Rate FiO2 08/16/20 12:00 97.7 77 16 116/43 (67) 98 08/16/20 12:00 73 08/16/20 09:00 Room Air 08/16/20 08:52 119/50 08/16/20 08:51 119/50 08/16/20 08:51 75 119/50 08/16/20 08:00 75 08/16/20 08:00 98.2 75 16 119/50 (73) 98 08/16/20 04:00 97.8 67 18 111/65 (80) 100 08/16/20 04:00 73 08/16/20 00:27 66 08/16/20 00:00 98.0 55 20 108/56 (73) 100 08/15/20 22:29 Room Air 08/15/20 20:30 67 114/52 08/15/20 20:00 61 08/15/20 20:00 97.5 67 18 114/52 (72) 97 08/15/20 17:39 119/48 08/15/20 17:38 119/48 08/15/20 16:00 97.7 63 18 119/48 (71) 97 08/15/20 16:00 72 Intake and Output 08/15/20 08/16/20 19:00 07:00 Intake Total 360 ml 240 ml Balance 360 ml 240 ml Intake Oral 360 ml 240 ml # Voids 3 6 Laboratory Tests Test 08/15/20 18:25 08/16/20 00:00 08/16/20 03:07 Troponin I 0.000 ng/mL (0.000-0.056) 0.000 ng/mL (0.000-0.056) Urine Color Pale yellow Urine Appearance Clear Urine pH 6 (4.5-8.0) Urine Specific [place] 1.005 (1.005-1.035) Urine Protein Negative (NEGATIVE) Urine Glucose (UA) Negative (NEGATIVE) Urine Ketones Negative (NEGATIVE) Urine Blood Negative (NEGATIVE) Urine Nitrite Negative (NEGATIVE) Urine Bilirubin Negative (NEGATIVE) Urine Urobilinogen Normal MG/DL (0.0-1.0) Urine Leukocyte Esterase Negative (NEGATIVE) Urine RBC 0 /HPF (0 - 2) Urine WBC 0 /HPF (0 - 2) Urine Squamous Epithelial Cells None /LPF (NONE/OCC) Urine Bacteria None /HPF (NONE) Urine Eosinophils None seen (NONE SEEN) Urine Random Sodium 105 mmol/L (20-110) White Blood Count 4.9 K/UL (4.8-10.8) Red Blood Count 3.43 M/UL (4.20-5.40) L Hemoglobin 10.1 G/DL (12.0-16.0) L Hematocrit 31.2 % (37.0-47.0) L Mean Corpuscular Volume 91 FL (80-99) Mean Corpuscular Hemoglobin 29.5 PG (27.0-31.0) Mean Corpuscular Hemoglobin Concent 32.4 G/DL (32.0-36.0) Red Cell Distribution Width 15.1 % (11.6-14.8) H Platelet Count 301 K/UL (150-450) Mean Platelet Volume 5.0 FL (6.5-10.1) L Neutrophils (%) (Auto) 49.1 % (45.0-75.0) Lymphocytes (%) (Auto) 37.8 % (20.0-45.0) Monocytes (%) (Auto) 8.3 % (1.0-10.0) Eosinophils (%) (Auto) 3.1 % (0.0-3.0) H Basophils (%) (Auto) 1.7 % (0.0-2.0) Sodium Level 138 MMOL/L (136-145) Potassium Level 4.1 MMOL/L (3.5-5.1) Chloride Level 105 MMOL/L (98-107) Carbon Dioxide Level 26 MMOL/L (21-32) Anion Gap 7 mmol/L (5-15) Blood Urea Nitrogen 33 mg/dL (7-18) H Creatinine 2.0 MG/DL (0.55-1.30) H Estimat Glomerular Filtration Rate 29.7 mL/min (>60) Glucose Level 95 MG/DL (74-106) Hemoglobin A1c 5.7 % (4.3-6.0) Uric Acid 11.6 MG/DL (2.6-7.2) H Calcium Level 9.4 MG/DL (8.5-10.1) Phosphorus Level 4.8 MG/DL (2.5-4.9) Magnesium Level 2.1 MG/DL (1.8-2.4) Total Bilirubin 0.4 MG/DL (0.2-1.0) Gamma Glutamyl Transpeptidase 20 U/L (5-85) Aspartate Amino Transf (AST/SGOT) 20 U/L (15-37) Alanine Aminotransferase (ALT/SGPT) 25 U/L (12-78) Alkaline Phosphatase 88 U/L (46-116) C-Reactive Protein, Quantitative < 0.4 mg/dL (0.00-0.90) Pro-B-Type Natriuretic Peptide 335 pg/mL (0-125) H Total Protein 7.3 G/DL (6.4-8.2) Albumin 3.9 G/DL (3.4-5.0) Globulin 3.4 g/dL Albumin/Globulin Ratio 1.1 (1.0-2.7) Vitamin B12 Level 233 PG/ML (193-986) Folate 7.6 NG/ML (8.6-58.9) L Free Thyroxine 1.21 NG/DL (0.76-1.46) Free Triiodothyronine 1.7 pg/mL (2.3-4.2) L Objective NECK: No JVD. LUNGS: Clear. CARDIOVASCULAR: Regular S1 and S2 with no gallop or murmur. Defibrillator in the left subclavian. ABDOMEN: Soft. EXTREMITIES: 1+ pitting edema. Alexandr Riojas MD Aug 16, 2020 15:35
[2020-08-16] MEDS ORDERED: Lexiscan 0.4mg/5ml syringe IV PRN (15:37)
[2020-08-16 16:00] VITALS: BP 124/54
[2020-08-16 20:00] VITALS: BP 127/58
[2020-08-16] MEDS: Atorvastatin 20mg tab ORAL SCH (20:40)
[2020-08-17] VITALS: BP 120/55
[2020-08-17 04:00] VITALS: BP 153/58
[2020-08-17 07:17] LABS: BASOPHILS % (AUTO) 1.2 % (0.0-2.0); EOSINOPHILS % (AUTO) 2.5 % (0.0-3.0); HEMATOCRIT 29.8 % (37.0-47.0); HEMOGLOBIN 9.7 G/DL (12.0-16.0); LYMPHOCYTES % (AUTO) 43.4 % (20.0-45.0); MEAN CORPUSCULAR VOLUME 91 FL (80-99); MONOCYTES % (AUTO) 10.9 % (1.0-10.0); PLATELET COUNT 280 K/UL (150-450); RED BLOOD COUNT 3.28 M/UL (4.20-5.40); RED CELL DISTRIBUTION WIDTH 15.1 % (11.6-14.8); WHITE BLOOD COUNT 5.8 K/UL (4.8-10.8)
[2020-08-17 07:28] LABS: CALCIUM 9.5 MG/DL (8.5-10.1); POTASSIUM 4.3 MMOL/L (3.5-5.1)
[2020-08-17 08:00] VITALS: BP 148/64
--- NOTE | 2020-08-17 08:53 | Nephrology Progress Note ---
Assessment/Plan Problem List: (1) Renal failure (ARF), acute on chronic (2) CHF (congestive heart failure) (3) Pacemaker (4) HTN (hypertension) (5) Obesity (BMI 30-39.9) Assessment Renal failure most likely multifactorial mainly secondary to congestive heart failure Hypertension Chest pain, history of coronary artery disease Prior [place] in 1993 underwent PTCA at [facility] Ischemic cardiomyopathy underwent defibrillator in 2014 at [facility] Obesity hyperlipemia Plan August 17: Denies chest pain and shortness of breath. Refused stress test. Serum creatinine stable at 2. Electrolytes okay. Remains stable from renal standpoint of view. Add folic acid, and allopurinol Optimize cardiac status Patient already on aspirin, nitrates, beta-blockers, Lipitor Monitor renal parameters and electrolytes Per orders Subjective ROS Limited/Unobtainable: No Constitutional: Reports: malaise Objective Objective Last 24 Hour Vital Signs Date Time Temp Pulse Resp B/P (MAP) Pulse Ox O2 Delivery O2 Flow Rate FiO2 08/17/20 04:00 72 08/17/20 04:00 97.7 86 18 153/58 (89) 98 08/17/20 00:00 68 08/17/20 00:00 98.1 71 17 120/55 (76) 96 08/16/20 21:00 Room Air 08/16/20 20:41 74 127/58 08/16/20 20:00 97.9 74 17 127/58 (81) 96 08/16/20 20:00 74 08/16/20 17:47 124/54 08/16/20 17:47 124/54 08/16/20 16:00 73 08/16/20 16:00 97.9 76 16 124/54 (77) 96 08/16/20 12:00 97.7 77 16 116/43 (67) 98 08/16/20 12:00 73 08/16/20 09:00 Room Air 08/16/20 08:52 119/50 Intake and Output 08/16/20 08/17/20 19:00 07:00 Intake Total 490 ml 260 ml Balance 490 ml 260 ml Intake Oral 490 ml 260 ml # Voids 4 2 Current Medications Medications (Trade) Dose Ordered Sig/Bry Route PRN Reason Start Time Stop Time Status Last Admin Dose Admin Acetaminophen (Tylenol) 650 mg Q4H PRN ORAL T>100.5 08/14/20 17:30 09/13/20 17:29 08/16/20 20:11 Albuterol/ Ipratropium (Albuterol/ Ipratropium) 3 ml Q4H PRN HHN Shortness of Breath 08/14/20 18:00 08/19/20 17:59 Allopurinol (allopurinoL) 300 mg DAILY ORAL 08/16/20 09:00 09/15/20 08:59 08/16/20 08:52 Aspirin (ASA) 162 mg DAILY ORAL 08/15/20 09:00 09/29/20 08:59 08/16/20 08:51 Atorvastatin Calcium (Lipitor) 20 mg BEDTIME ORAL 08/14/20 21:00 11/12/20 20:59 08/16/20 20:40 Carvedilol (Coreg) 25 mg EVERY 12 HOURS ORAL 08/14/20 21:00 09/13/20 20:59 08/16/20 20:41 Clonidine HCl (Catapres Tab) 0.1 mg Q4H PRN ORAL sbp>170 08/15/20 11:00 11/13/20 10:59 Diltiazem HCl (Cardizem) 10 mg Q1H PRN IV heart rate more than 120, 08/14/20 18:00 09/13/20 17:59 Docusate Sodium (Colace) 100 mg TWICE A DAY ORAL 08/15/20 18:00 09/14/20 17:59 08/16/20 17:47 Folic Acid (Folate) 1 mg DAILY ORAL 08/17/20 09:00 09/16/20 08:59 Furosemide (Lasix) 40 mg EVERY 12 HOURS IV 08/15/20 21:00 09/14/20 20:59 08/16/20 20:39 Heparin Sodium (Porcine) (Heparin 5000 units/ml) 5,000 units EVERY 12 HOURS SUBQ 08/14/20 21:00 09/28/20 20:59 08/16/20 20:42 Hydralazine HCl (Apresoline) 10 mg BID ORAL 08/15/20 18:00 11/13/20 17:59 08/16/20 17:47 Isosorbide Dinitrate (Isordil) 10 mg BID ORAL 08/15/20 18:00 09/14/20 17:59 08/16/20 17:47 Levothyroxine Sodium (Synthroid) 175 mcg DAILY IV 08/15/20 09:00 09/14/20 08:59 08/16/20 08:53 Nitroglycerin (Ntg) 0.4 mg Q5MIN X3 PRN SL Prn Chest Pain 08/14/20 18:00 09/13/20 17:59 Ondansetron HCl (Zofran) 4 mg Q6H PRN IVP Nausea & Vomiting 08/14/20 17:30 09/13/20 17:29 Pantoprazole (Protonix) 40 mg Q12HR ORAL 08/15/20 21:00 09/14/20 06:29 08/16/20 20:40 Polyethylene Glycol (Miralax) 17 gm DAILYPRN PRN ORAL Constipation 08/14/20 17:30 09/13/20 17:29 Temazepam (Restoril) 15 mg HSPRN PRN ORAL Insomnia 08/14/20 21:00 08/21/20 20:59 Laboratory Tests 08/17/20 06:07: White Blood Count 5.8, Red Blood Count 3.28L, Hemoglobin 9.7L, Hematocrit 29.8L, Mean Corpuscular Volume 91, Mean Corpuscular Hemoglobin 29.6, Mean Corpuscular Hemoglobin Concent 32.6, Red Cell Distribution Width 15.1H, Platelet Count 280, Mean Platelet Volume 5.0L, Neutrophils (%) (Auto) 42.0L, Lymphocytes (%) (Auto) 43.4, Monocytes (%) (Auto) 10.9H, Eosinophils (%) (Auto) 2.5, Basophils (%) (Auto) 1.2, Sodium Level 142, Potassium Level 4.3, Chloride Level 107, Carbon Dioxide Level 27, Anion Gap 8, Blood Urea Nitrogen 36H, Creatinine 2.0H, Estimat Glomerular Filtration Rate 29.7, Glucose Level 92, Calcium Level 9.5 Height (Feet): 5 Height (Inches): 9.00 Weight (Pounds): 228 General Appearance: no apparent distress Respiratory/Chest: decreased breath sounds Abdomen: soft, other - obese Jared Gordon MD Aug 17, 2020 08:53
[2020-08-17] MEDS: Carvedilol 25mg Tab ORAL SCH (09:20)
[2020-08-17] MEDS: HydrALAZINE 10mg Tab ORAL SCH (09:20)
[2020-08-17] MEDS: Docusate 100mg cap ORAL SCH (09:20)
[2020-08-17] MEDS: Aspirin Baby 81mg ORAL SCH (09:20)
[2020-08-17] MEDS: Heparin 5000 units/ml inj SUBQ SCH (09:28)
--- NOTE | 2020-08-17 11:00 | Pulmonology Progress Note ---
Subjective ROS Limited/Unobtainable: No Constitutional: Reports: no symptoms HEENT: Repors: no symptoms Allergies: Coded Allergies: No Known Allergies (Unverified , 08/14/20) All Systems: reviewed and negative except above Objective Last 24 Hour Vital Signs Date Time Temp Pulse Resp B/P (MAP) Pulse Ox O2 Delivery O2 Flow Rate FiO2 08/17/20 09:20 153/58 08/17/20 09:20 153/58 08/17/20 09:20 72 153/58 08/17/20 04:00 72 08/17/20 04:00 97.7 86 18 153/58 (89) 98 08/17/20 00:00 68 08/17/20 00:00 98.1 71 17 120/55 (76) 96 08/16/20 21:00 Room Air 08/16/20 20:41 74 127/58 08/16/20 20:00 97.9 74 17 127/58 (81) 96 08/16/20 20:00 74 08/16/20 17:47 124/54 08/16/20 17:47 124/54 08/16/20 16:00 73 08/16/20 16:00 97.9 76 16 124/54 (77) 96 08/16/20 12:00 97.7 77 16 116/43 (67) 98 08/16/20 12:00 73 Intake and Output 08/16/20 08/17/20 19:00 07:00 Intake Total 490 ml 260 ml Balance 490 ml 260 ml Intake Oral 490 ml 260 ml # Voids 4 2 General Appearance: WD/WN HEENT: normocephalic, anicteric Respiratory: chest wall non-tender, lungs clear Breasts: no masses Cardiovascular: normal peripheral pulses Abdomen: normal bowel sounds, soft, non tender Genitourinary: normal external genitalia Extremities: no clubbing Skin: no rash 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 Lymphatic: no neck adenopathy Laboratory Tests 08/17/20 06:07: White Blood Count 5.8, Red Blood Count 3.28L, Hemoglobin 9.7L, Hematocrit 29.8L, Mean Corpuscular Volume 91, Mean Corpuscular Hemoglobin 29.6, Mean Corpuscular Hemoglobin Concent 32.6, Red Cell Distribution Width 15.1H, Platelet Count 280, Mean Platelet Volume 5.0L, Neutrophils (%) (Auto) 42.0L, Lymphocytes (%) (Auto) 43.4, Monocytes (%) (Auto) 10.9H, Eosinophils (%) (Auto) 2.5, Basophils (%) (Auto) 1.2, Sodium Level 142, Potassium Level 4.3, Chloride Level 107, Carbon Dioxide Level 27, Anion Gap 8, Blood Urea Nitrogen 36H, Creatinine 2.0H, Estimat Glomerular Filtration Rate 29.7, Glucose Level 92, Calcium Level 9.5 Current Medications Medications (Trade) Dose Ordered Sig/Bry Route PRN Reason Start Time Stop Time Status Last Admin Dose Admin Acetaminophen (Tylenol) 650 mg Q4H PRN ORAL T>100.5 08/14/20 17:30 09/13/20 17:29 08/16/20 20:11 Albuterol/ Ipratropium (Albuterol/ Ipratropium) 3 ml Q4H PRN HHN Shortness of Breath 08/14/20 18:00 08/19/20 17:59 Allopurinol (allopurinoL) 300 mg DAILY ORAL 08/16/20 09:00 09/15/20 08:59 08/17/20 09:20 Aspirin (ASA) 162 mg DAILY ORAL 08/15/20 09:00 09/29/20 08:59 08/17/20 09:20 Atorvastatin Calcium (Lipitor) 20 mg BEDTIME ORAL 08/14/20 21:00 11/12/20 20:59 08/16/20 20:40 Carvedilol (Coreg) 25 mg EVERY 12 HOURS ORAL 08/14/20 21:00 09/13/20 20:59 08/17/20 09:20 Clonidine HCl (Catapres Tab) 0.1 mg Q4H PRN ORAL sbp>170 08/15/20 11:00 11/13/20 10:59 Diltiazem HCl (Cardizem) 10 mg Q1H PRN IV heart rate more than 120, 08/14/20 18:00 09/13/20 17:59 Docusate Sodium (Colace) 100 mg TWICE A DAY ORAL 08/15/20 18:00 09/14/20 17:59 08/17/20 09:20 Folic Acid (Folate) 1 mg DAILY ORAL 08/17/20 09:00 09/16/20 08:59 08/17/20 09:20 Furosemide (Lasix) 40 mg EVERY 12 HOURS IV 08/15/20 21:00 09/14/20 20:59 08/17/20 09:21 Heparin Sodium (Porcine) (Heparin 5000 units/ml) 5,000 units EVERY 12 HOURS SUBQ 08/14/20 21:00 09/28/20 20:59 08/17/20 09:28 Hydralazine HCl (Apresoline) 10 mg BID ORAL 08/15/20 18:00 11/13/20 17:59 08/17/20 09:20 Isosorbide Dinitrate (Isordil) 10 mg BID ORAL 08/15/20 18:00 09/14/20 17:59 08/17/20 09:20 Levothyroxine Sodium (Synthroid) 175 mcg DAILY IV 08/15/20 09:00 09/14/20 08:59 08/17/20 10:24 Nitroglycerin (Ntg) 0.4 mg Q5MIN X3 PRN SL Prn Chest Pain 08/14/20 18:00 09/13/20 17:59 Ondansetron HCl (Zofran) 4 mg Q6H PRN IVP Nausea & Vomiting 08/14/20 17:30 09/13/20 17:29 Pantoprazole (Protonix) 40 mg Q12HR ORAL 08/15/20 21:00 09/14/20 06:29 08/17/20 09:20 Polyethylene Glycol (Miralax) 17 gm DAILYPRN PRN ORAL Constipation 08/14/20 17:30 09/13/20 17:29 Temazepam (Restoril) 15 mg HSPRN PRN ORAL Insomnia 08/14/20 21:00 08/21/20 20:59 Assessment/Plan Problems: (1) ACS (acute coronary syndrome) (2) Hypertension (3) CHF (congestive heart failure) (4) Pacemaker Assessment/Plan refusing stress test wants to go home no more chest pain all reviewed pacemaker needs to be interrogated monitor BP f/u cardio recommendations. dvt prophylaxis Aubrey Day MD Aug 17, 2020 11:00
--- NOTE | 2020-08-17 11:44 | CDS Physician Query ---
Clarification is required for compliance, coding accuracy, and to reflect severity of illness for this patient Dear Dr. 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 Chest pain, , CHF, hypertension, lupus, renal insufficiency, anemia, shortness of breath. Cardiology note: History of CHF. Echo EF 40%. On Lasix 40 mg IV b.i.d., Coreg 25 b.i.d., Hydralazine 10 bid and Isordil 10 bid 3. Hypertension, I will maximize her heart failure therapy with Lasix and Coreg, hydralazine and nitrate. Please document the suspected etiology of Chest Pain: [] Acute on chronic diastolic heart failure [] Chronic diastolic heart failure [] Other heart failure [] Acute Coronary Syndrome [] Coronary artery disease with angina [] Anxiety [] Costochondritis [] GERD/Esophagitis [] Other: [] Unable to determine Present on Admission: [] Yes [] No [] Clinically Undetermined Physician signature Date Please also document in your Progress Notes and/or Discharge Summary and indicate if the condition was present on admission. MTDD
[2020-08-17 12:00] VITALS: BP 127/50
--- NOTE | 2020-08-17 12:35 | General Progress Note ---
Subjective Constitutional: Reports: weakness Allergies: Coded Allergies: No Known Allergies (Unverified , 08/14/20) All Systems: reviewed and negative except above Subjective calm in bed no cp, refusing nuclear test Objective Last 24 Hour Vital Signs Date Time Temp Pulse Resp B/P (MAP) Pulse Ox O2 Delivery O2 Flow Rate FiO2 08/17/20 09:20 153/58 08/17/20 09:20 153/58 08/17/20 09:20 72 153/58 08/17/20 09:00 Room Air 08/17/20 08:00 72 08/17/20 08:00 97.9 88 20 148/64 (92) 98 08/17/20 04:00 72 08/17/20 04:00 97.7 86 18 153/58 (89) 98 08/17/20 00:00 68 08/17/20 00:00 98.1 71 17 120/55 (76) 96 08/16/20 21:00 Room Air 08/16/20 20:41 74 127/58 08/16/20 20:00 97.9 74 17 127/58 (81) 96 08/16/20 20:00 74 08/16/20 17:47 124/54 08/16/20 17:47 124/54 08/16/20 16:00 73 08/16/20 16:00 97.9 76 16 124/54 (77) 96 Intake and Output 08/16/20 08/17/20 19:00 07:00 Intake Total 490 ml 260 ml Balance 490 ml 260 ml Intake Oral 490 ml 260 ml # Voids 4 2 Laboratory Tests 08/17/20 06:07: White Blood Count 5.8, Red Blood Count 3.28L, Hemoglobin 9.7L, Hematocrit 29.8L, Mean Corpuscular Volume 91, Mean Corpuscular Hemoglobin 29.6, Mean Corpuscular Hemoglobin Concent 32.6, Red Cell Distribution Width 15.1H, Platelet Count 280, Mean Platelet Volume 5.0L, Neutrophils (%) (Auto) 42.0L, Lymphocytes (%) (Auto) 43.4, Monocytes (%) (Auto) 10.9H, Eosinophils (%) (Auto) 2.5, Basophils (%) (Auto) 1.2, Sodium Level 142, Potassium Level 4.3, Chloride Level 107, Carbon Dioxide Level 27, Anion Gap 8, Blood Urea Nitrogen 36H, Creatinine 2.0H, Estimat Glomerular Filtration Rate 29.7, Glucose Level 92, Calcium Level 9.5 Height (Feet): 5 Height (Inches): 9.00 Weight (Pounds): 228 General Appearance: alert EENT: normal ENT inspection Neck: normal alignment Cardiovascular: normal peripheral pulses, normal rate, regular rhythm Respiratory/Chest: chest wall non-tender, lungs clear, normal breath sounds Abdomen: normal bowel sounds, non tender, soft Extremities: normal inspection Edema: no edema noted Arm (L), no edema noted Arm (R), no edema noted Leg (L), no edema noted Leg (R), no edema noted Pedal (L), no edema noted Pedal (R), no edema noted Generalized Neurologic: responsive, motor weakness Skin: normal pigmentation, warm/dry Assessment/Plan Problem List: (1) HTN (hypertension) ICD Codes: I10 - Essential (primary) hypertension SNOMED: 64934903 (2) Lupus ICD Codes: M32.9 - Systemic lupus erythematosus, unspecified SNOMED: 548433546 (3) SOB (shortness of breath) ICD Codes: R06.02 - Shortness of breath SNOMED: 969466604 (4) Chest pain ICD Codes: R07.9 - Chest pain, unspecified SNOMED: 17704165 Qualifiers: Qualified Codes: R07.9 - Chest pain, unspecified (5) CHF (congestive heart failure) ICD Codes: I50.9 - Heart failure, unspecified SNOMED: 12053511 (6) Hypertension ICD Codes: I10 - Essential (primary) hypertension SNOMED: 30917089 (7) Pacemaker ICD Codes: Z95.0 - Presence of cardiac pacemaker SNOMED: 086319411 (8) ACS (acute coronary syndrome) ICD Codes: I24.9 - Acute ischemic heart disease, unspecified SNOMED: 188642455 Status: stable, progressing Assessment/Plan: o2 pulm tx cardio pulm f/u cbc bmp am dc if clear Lauro Butcher DO Aug 17, 2020 12:35
[2020-08-17] MEDS ORDERED: ASPIRIN81 MG ORAL (12:45)
[2020-08-17] MEDS ORDERED: ISOSORBIDE DINI10 MG ORAL (12:45)
--- NOTE | 2020-08-17 15:16 | Cardiac Electrophysiology PN ---
Assessment/Plan Assessment/Plan 1. Chest pain. The patient has history of coronary artery disease, prior myocardial infarction and PTCA in 1993. Ruled out for AR. Her EKG is atrially sensed and ventricular paced rhythm and cannot be interpreted from the ischemia perspective with ventricular paced. On aspirin and Brilinta and Coreg 25 b.i.d. as well as Lipitor 20 mg at bedtime. Scheduled for stress test today but refused. 2. History of CHF. Echo EF 40%. On Lasix , Coreg 25 b.i.d., Hydralazine 10 bid and Isordil 10 bid 3. Hypertension, I will maximize her heart failure therapy with Lasix and Coreg, hydralazine and nitrate. 4. Status post dual-chamber [employer] ICD. Recent interrogation was at office with Emmanuel Winn 5. Hypothyroidism, on Synthroid. 6. Hyperlipidemia, on Lipitor. 7. Obesity. 8. CKD Cr 2.0 DW RN Subjective Subjective Remains A sense V paced. No CP or SOB. Refused stress test. 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 Going home Objective Last 24 Hour Vital Signs Date Time Temp Pulse Resp B/P (MAP) Pulse Ox O2 Delivery O2 Flow Rate FiO2 08/17/20 12:00 72 08/17/20 12:00 97.7 78 20 127/50 (75) 98 08/17/20 09:20 153/58 08/17/20 09:20 153/58 08/17/20 09:20 72 153/58 08/17/20 09:00 Room Air 08/17/20 08:00 72 08/17/20 08:00 97.9 88 20 148/64 (92) 98 08/17/20 04:00 72 08/17/20 04:00 97.7 86 18 153/58 (89) 98 08/17/20 00:00 68 08/17/20 00:00 98.1 71 17 120/55 (76) 96 08/16/20 21:00 Room Air 08/16/20 20:41 74 127/58 08/16/20 20:00 97.9 74 17 127/58 (81) 96 08/16/20 20:00 74 08/16/20 17:47 124/54 08/16/20 17:47 124/54 08/16/20 16:00 73 08/16/20 16:00 97.9 76 16 124/54 (77) 96 Intake and Output 08/16/20 08/17/20 19:00 07:00 Intake Total 490 ml 260 ml Balance 490 ml 260 ml Intake Oral 490 ml 260 ml # Voids 4 2 Laboratory Tests Test 08/17/20 06:07 White Blood Count 5.8 K/UL (4.8-10.8) Red Blood Count 3.28 M/UL (4.20-5.40) L Hemoglobin 9.7 G/DL (12.0-16.0) L Hematocrit 29.8 % (37.0-47.0) L Mean Corpuscular Volume 91 FL (80-99) Mean Corpuscular Hemoglobin 29.6 PG (27.0-31.0) Mean Corpuscular Hemoglobin Concent 32.6 G/DL (32.0-36.0) Red Cell Distribution Width 15.1 % (11.6-14.8) H Platelet Count 280 K/UL (150-450) Mean Platelet Volume 5.0 FL (6.5-10.1) L Neutrophils (%) (Auto) 42.0 % (45.0-75.0) L Lymphocytes (%) (Auto) 43.4 % (20.0-45.0) Monocytes (%) (Auto) 10.9 % (1.0-10.0) H Eosinophils (%) (Auto) 2.5 % (0.0-3.0) Basophils (%) (Auto) 1.2 % (0.0-2.0) Sodium Level 142 MMOL/L (136-145) Potassium Level 4.3 MMOL/L (3.5-5.1) Chloride Level 107 MMOL/L (98-107) Carbon Dioxide Level 27 MMOL/L (21-32) Anion Gap 8 mmol/L (5-15) Blood Urea Nitrogen 36 mg/dL (7-18) H Creatinine 2.0 MG/DL (0.55-1.30) H Estimat Glomerular Filtration Rate 29.7 mL/min (>60) Glucose Level 92 MG/DL (74-106) Calcium Level 9.5 MG/DL (8.5-10.1) Objective NECK: No JVD. LUNGS: Clear. CARDIOVASCULAR: Regular S1 and S2 with no gallop or murmur. Defibrillator in the left subclavian. ABDOMEN: Soft. EXTREMITIES: 1+ pitting edema. Alexandr Riojas MD Aug 17, 2020 15:16
== END 2020-08-17 14:53 | disposition home or self-care (01) | DRG 311 ==
LOC: EDBD 12:57 → EMR 13:00 → 2E 15:16 → EDBEDREQ 16:44
DX: I24.9 Acute ischemic heart disease, unspecified (principal); I13.0 Hypertensive heart and chronic kidney disease with heart failure and stage 1 through stage 4 chronic kidney disease, or unspecified chronic kidney disease; N17.9 Acute kidney failure, unspecified; I25.10 Atherosclerotic heart disease of native coronary artery without angina pectoris; R07.9 Chest pain, unspecified; I50.9 Heart failure, unspecified; M32.9 Systemic lupus erythematosus, unspecified; N18.9 Chronic kidney disease, unspecified; Z95.0 Presence of cardiac pacemaker; I25.2 Old myocardial infarction; Z79.82 Long term (current) use of aspirin; E03.9 Hypothyroidism, unspecified; E66.9 Obesity, unspecified; E78.5 Hyperlipidemia, unspecified; I25.5 Ischemic cardiomyopathy; Z95.5 Presence of coronary angioplasty implant and graft; Z68.33 Body mass index [BMI] 33.0-33.9, adult
CPT/HCPCS: 36415; 71045; 80048; 80053; 80061; 81001; 82607; 82746; 82977; 83036; 83735; 83880; 84100; 84300; 84439; 84443; 84481; 84484; 84550; 85025; 85610; 85730; 86140; 89050; 93005; 93306; 99285; J7620